=== PATIENT | female | born 1955 | race Caucasian/White ===

== ENCOUNTER 2021-01-29 16:59 | Emergency (ER) | payer OTHER, SELFPAY ==
[2021-01-29 17:04] VITALS: BP 154/71; PULSE 80; RESP 20; TEMP 36.7; O2SAT 98
--- NOTE | 2021-01-29 17:09 | ED.URI ---
HPI - URI/Sore Throat General Chief Complaint: Upper Respiratory Infection Stated Complaint: Cold/flu Time Seen by Provider: 01/29/21 17:09 Source: patient and RN notes reviewed History of Present Illness HPI Narrative: Patient is a 65-year-old female who presents the urgent care with complaints of cough, runny nose since last Friday. Patient states she is been taking an allergy medication and taking Coricidin [id number] for symptom relief. Patient states that she is now hoarse and is concerned she may have bronchitis. Patient denies of any history of pneumonia. Denies of fever, chills, nausea, vomiting. States that she has had the Covid vaccine. Denies of any shortness of breath, wheezing or difficulty breathing. No other acute complaints. No acute distress noted. Patient aware of the plan of care. Some parts of this dictation were generated by voice recognition software and may contain typographical and/or grammatical inaccuracies. Related Data Home Medications Medication Instructions Recorded Confirmed alprazolam 0.5 mg PO BID PRN 01/29/21 01/29/21 atorvastatin 80 mg PO DAILY 01/29/21 01/29/21 bupropion HCl 150 mg PO DAILY 01/29/21 01/29/21 cholecalciferol (vitamin D3) 50 mcg PO DAILY 01/29/21 01/29/21 cyanocobalamin (vitamin B-12) 2,500 mcg SUBLINGUAL DAILY 01/29/21 01/29/21 [Vitamin B-12] duloxetine 60 mg PO DAILY 01/29/21 01/29/21 ezetimibe 10 mg PO DAILY 01/29/21 01/29/21 loratadine 10 mg PO DAILY 01/29/21 01/29/21 meloxicam 15 mg PO DAILY 01/29/21 01/29/21 metoprolol succinate 50 mg PO DAILY 01/29/21 01/29/21 oxybutynin chloride 5 mg PO DAILY 01/29/21 01/29/21 trazodone 50 mg PO HS 01/29/21 01/29/21 Allergies Allergy/AdvReac Type Severity Reaction Status Date / Time No Known Drug Allergies Allergy Unknown Unknown Verified 01/29/21 17:17 Review of Systems Review of Systems: CONSTITUTIONAL: Denies fever, chills, or sweats. EYES: Denies visual changes, redness, or discharge. ENT: Denies congestion, sore throat, or otalgia. Reports of hoarse voice and rhinorrhea CARDIOVASCULAR: Denies chest pain, palpitations, or edema. RESPIRATORY: Reports of cough without dyspnea GASTROINTESTINAL: Denies abdominal pain, nausea, vomiting, or diarrhea. GENITOURINARY: Denies dysuria or hematuria. SKIN: Denies rash or itching. MUSCULOSKELETAL: Denies back pain, joint pain, or myalgia. NEUROLOGIC: Denies headache, numbness, or weakness. All other systems reviewed are negative, except as documented in HPI. PMFSH Comments At the time of my signature, I reviewed and agree with the nursing past medical, surgical, social, and family history. There is no relevant family history pertinent to the patient complaint. Exam Narrative: GENERAL: This is a well-nourished, well-developed patient, in no apparent distress. HEAD: normocephalic, atraumatic. EYES: PERRL. Sclera clear/white. Vision is grossly intact. EARS: External ears normal, auditory canals clear and without drainage, TMs normal without perforation. Hearing grossly intact. NOSE: External nose normal with no obvious nasal discharge, nares without redness, clear rhinorrhea. THROAT: Mucous membranes moist, posterior pharynx clear. Mild postnasal drainage NECK: Neck supple CARDIOVASCULAR: Regular rate and rhythm without murmurs, gallops, or rubs. RESPIRATORY: Clear to auscultation. Breath sounds equal bilaterally. No wheezes, rales, or rhonchi. SKIN: warm, intact with no suspicious lesions or rash, good texture and turgor. NEURO: awake, alert, and oriented to person, place and time. There were no obvious focal neurologic abnormalities. EXTREMITIES: No clubbing, cyanosis, or edema. Course Vital Signs Vital signs: Vital Signs Temperature 98.1 F 01/29/21 17:04 Pulse Rate 80 01/29/21 17:04 Respiratory Rate 20 01/29/21 17:04 Blood Pressure 154/71 H 01/29/21 17:04 Pulse Oximetry 98 01/29/21 17:04 Temperature 98.1 F 01/29/21 17:17 Pulse Rate 80
[2021-01-29 17:17] VITALS: BP 154/71; PULSE 80; RESP 20; TEMP 36.7; O2SAT 98
== END 2021-01-29 17:27 | disposition home or self-care (01) ==
PROVIDERS: Emergency Provider Nurse Practitioner Family
DX: J30.89 Other allergic rhinitis (principal); Z86.73 Personal history of transient ischemic attack (TIA), and cerebral infarction without residual deficits; E78.00 Pure hypercholesterolemia, unspecified; I10 Essential (primary) hypertension; F41.9 Anxiety disorder, unspecified; F32.A Depression, unspecified
CPT/HCPCS: 99203; G0463

== ENCOUNTER 2022-05-16 19:37 | Emergency (ER) | payer MEDICARE, SELFPAY ==
[2022-05-16 19:55] VITALS: BP 132/60; PULSE 60; RESP 18; TEMP 36.7; O2SAT 98
[2022-05-16 20:00] VITALS: BP 143/63; PULSE 59
[2022-05-16 20:02] VITALS: BP 141/64; PULSE 61
[2022-05-16 20:04] VITALS: BP 143/62; PULSE 60
--- NOTE | 2022-05-16 20:06 | ED.GENADULT ---
HPI - General Adult General Chief complaint: Nausea/Vomiting/Diarrhea Stated complaint: Vomiting/Dizziness Time Seen by Provider: 05/16/22 20:07 Mode of arrival: ambulatory Limitations: no limitations History of Present Illness HPI narrative: 67-year-old female presents concern for intractable vomiting for 2 weeks. She reports she has a hard time keeping water down. She has been vomiting a little less in the last couple of days, she last vomited yesterday. She also reports dizziness that worsens when she stands up. She reports she has not been able to take many of her medications, including her blood pressure medication due to the vomiting and not being of the keep it down. She reports she is urinating normally. She denies abdominal pain, she reports 1 episode of diarrhea. She denies sore throat, nasal congestion, rhinorrhea, ear pain, ear fullness, fever, chills, sweats, back pain. She denies dysuria, frequency, urgency. She denies shortness breath. She denies headache, weakness in extremities, vision changes. MD complaint: Vomiting Related Data Home Medications Medication Instructions Recorded Confirmed alprazolam 0.5 mg tablet 0.5 mg PO BID PRN Anxiety 01/29/21 05/16/22 atorvastatin 80 mg tablet 80 mg PO DAILY 01/29/21 05/16/22 bupropion HCl 150 mg 24 hr tablet, 150 mg PO DAILY 01/29/21 05/16/22 extended release cholecalciferol (vitamin D3) 50 50 mcg PO DAILY 01/29/21 05/16/22 mcg (2,000 unit) tablet cyanocobalamin (vitamin B-12) 2,500 mcg sublingual DAILY 01/29/21 05/16/22 2,500 mcg sublingual tablet (Vitamin B-12) duloxetine 60 mg capsule,delayed 60 mg PO DAILY 01/29/21 05/16/22 release ezetimibe 10 mg tablet 10 mg PO DAILY 01/29/21 05/16/22 loratadine 10 mg tablet 10 mg PO DAILY 01/29/21 05/16/22 meloxicam 15 mg tablet 15 mg PO DAILY 01/29/21 05/16/22 metoprolol succinate 50 mg 50 mg PO DAILY 01/29/21 05/16/22 tablet,extended release 24 hr alendronate 70 mg tablet 70 mg PO WEEKLY 05/16/22 05/16/22 aspirin 81 mg capsule 81 mg PO DAILY 05/16/22 05/16/22 duloxetine 20 mg capsule,delayed 40 mg PO DAILY 05/16/22 05/16/22 release Allergies Allergy/AdvReac Type Severity Reaction Status Date / Time No Known Drug Allergies Allergy Unknown Unknown Verified 05/16/22 20:17 Review of Systems Review of Systems: CONSTITUTIONAL: Denies malaise, chills, sweats, or fever. EYES: Denies visual changes, redness, or discharge. ENT: Denies rhinorrhea, congestion, sinus pain, otalgia or sore throat. CARDIOVASCULAR: Denies chest pain, palpitations, or edema. RESPIRATORY: Denies cough or dyspnea. GASTROINTESTINAL: Denies abdominal pain. Reports nausea, vomiting, 1 episode diarrhea GENITOURINARY: Denies dysuria or hematuria. SKIN: Denies rash or itching. MUSCULOSKELETAL: Denies myalgia. NEUROLOGIC: Denies numbness, weakness, or headache. Reports dizziness that occurs about once daily PSYCHIATRIC: Denies anxiety or depression. All systems reviewed & are unremarkable except as noted in HPI and below PMFSH Comments At time of signature, agree with nursing past medical, surgical, social and family history. There is no relevant family history pertinent to the presenting complaint Exam Narrative: GENERAL: Well-appearing, well-nourished, and in no acute distress. HEAD: Normocephalic, atraumatic. EYES: PERRLA, sclera clear, and EOMI. No nystagmus. ENT: Nares clear, turbinates pink, no rhinorrhea or epistaxis. Mucous membranes moist. TM pearly guan with sharp light reflex bilaterally; no tragal tenderness. Oropharynx without erythema or lesions. Tonsils not enlarged and without exudate. NECK: Supple. No lymphadenopathy. No jugular venous distension, thyromegaly, or carotid bruits. Carotids were easily palpable bilaterally. CHEST: No respiratory distress. Clear to auscultation. No bony deformities, no asymmetry. Speaks in full sentences. HEART: Regular rate and rhythm. No murmur heard. Normal peripheral pulses. ABDOMEN: Soft,
== END 2022-05-16 20:30 | disposition home or self-care (01) ==
PROVIDERS: Emergency Provider Nurse Practitioner; PCP Family Medicine
DX: R11.10 Vomiting, unspecified (principal); E78.00 Pure hypercholesterolemia, unspecified; I10 Essential (primary) hypertension; Z86.73 Personal history of transient ischemic attack (TIA), and cerebral infarction without residual deficits; F41.9 Anxiety disorder, unspecified; F32.A Depression, unspecified
CPT/HCPCS: 81003; 99213; G0463